=== PATIENT | male | born 1965 | race African-American/Black ===

== ENCOUNTER 2018-11-03 13:26 | Inpatient (IN) | payer OTHER ==
[2018-11-03 16:06] VITALS: BMI 25.9
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
[2018-11-03] MEDS ORDERED: P-EPHED 60MG/TRIPROLIDI 2.5MG TABLET PO PRN (16:47)
[2018-11-03] MEDS ORDERED: ACETAMINOPHEN 325 MG TABLET (FP) PO PRN (16:47)
[2018-11-03] MEDS ORDERED: guaiFENesin/D-METHORPHAN HB 10 ML UNIT-DOSE CUPS PO PRN (16:47)
[2018-11-03] MEDS ORDERED: MENTHOL/PHENOL 1 EACH UD MM PRN (16:47)
[2018-11-03] MEDS ORDERED: IBUPROFEN 400 MG TABLET (FP) PO PRN (16:47)
[2018-11-03] MEDS ORDERED: MAGNESIUM CITRATE 300 ML BOTTLE PO PRN (16:47)
[2018-11-03] MEDS ORDERED: MAGNESIUM HYDROX 2400MG/30ML ORAL SUSPENSION 30 ML CUP PO PRN (16:47)
[2018-11-03] MEDS ORDERED: MAG HYDROX/AL HYDROX/SIMETH 30 ML UNIT-DOSE CUP PO PRN (16:47)
[2018-11-03] MEDS ORDERED: NICOTINE POLACRILEX 2 MG GUM BC PRN (16:47)
[2018-11-03] MEDS ORDERED: METHADONE HCL 10 MG TABLET (FOR DETOX USE ONLY) PO ONE ×2 (17:45→23:00)
[2018-11-03] MEDS: THIAMINE HCL 100 MG TABLET (FP) PO SCH (22:06)
[2018-11-04] MEDS ORDERED: METHADONE HCL 5 MG TABLET PO ONE (10:00)
[2018-11-04] MEDS: PRENATAL VITAMINS W/ FOLIC ACID TABLET (FP) PO SCH (10:41)
[2018-11-04 10:57] LABS: HEMATOCRIT 39.9 % (35.4-49); HEMOGLOBIN 12.2 GM/dL (11.7-16.9); MCH 22.5 pg (25.7-33.7); MCHC 30.6 g/dl (32.0-35.9); MEAN CELL VOLUME 73.7 fl (80-96); MEAN PLT VOLUME 8.6 fl (7.5-11.1); PLATELET COUNT 220 K/MM3 (134-434); RBC 5.41 M/mm3 (4.00-5.60); RDW 15.5 % (11.9-15.9); WHITE BLOOD COUNT 4.8 K/mm3 (4.0-10.0)
--- NOTE | 2018-11-04 11:20 | PN ---
[facility] COWS - Scale Resting Pulse: 0= [place] 80 or Below Sweatin= Chills/Flushing Restless Observation: 3= Extraneous Movement Pupil Size: 0= Normal to Room Light Bone or Joint Aches: 4=Acute Joint/Muscle Pain Runny Nose/ Eye Tearin= None GI Upset > 30mins: 0= None Tremor Observation of Outstretched Hands: 1= Tremor [place], Not Seen Yawning Observation: 1= 1-2x During Session Anxiety or Irritability: 2=Irritable/Anxious Goose Flesh Skin: 0=Smooth Skin COWS Score: 12 S Progress Note (SOAP) Subjective: ANXIETY, IRRITABILITY, BODY ACHES, INTERMITTENT SLEEP. Objective: 11/04/18 11:53 Vital Signs 11/04/18 06:16 Temperature 97.5 F L Pulse Rate 67 Respiratory 18 Rate Blood Pressure 144/92 Laboratory Tests 11/04/18 07:50 WBC 4.8 RBC 5.41 Hgb 12.2 Hct 39.9 MCV 73.7 L MCH 22.5 L MCHC 30.6 L RDW 15.5 Plt Count 220 MPV 8.6 OTHER LABS PENDING Assessment: 11/04/18 11:54 WITHDRAWAL SX Plan: CONTINUE DETOX INCREASE PO FLUIDS
[2018-11-04] MEDS ORDERED: METHADONE HCL 5 MG TABLET (FOR DETOX USE ONLY) PO ONE (11:30)
[2018-11-04 12:18] LABS: ALK PHOS 51 U/L (45-117); ANION GAP 8 MMOL/L (8-16); BILIRUBIN,TOTAL 0.5 mg/dL (0.2-1); BLOOD UREA NITROGEN 14 mg/dL (7-18); CALCIUM 8.2 mg/dL (8.5-10.1); CHLORIDE 107 mmol/L (98-107); CO2 28 mmol/L (21-32); GLUCOSE,RANDOM 53 mg/dL (74-106); POTASSIUM 4.1 mmol/L (3.5-5.1); SGOT/AST 15 U/L (15-37); SGPT/ALT 21 U/L (13-61); SODIUM 142 mmol/L (136-145); TOT PROT 5.7 g/dl (6.4-8.2)
[2018-11-04] MEDS: THIAMINE HCL 100 MG TABLET (FP) PO SCH (22:30)
[2018-11-04] MEDS: MELATONIN 5 MG TABLETS PO PRN (23:56)
[2018-11-04] MEDS: METHOCARBAMOL 500 MG TABLET PO PRN (23:56)
[2018-11-05] MEDS ORDERED: TRIMETHOBENZAMIDE HCL 200MG/2ML INJ IM ONE (06:31)
--- NOTE | 2018-11-05 06:33 | PN ---
Maude Progress Note Note: Patient complained of nausea. Vomited x 1 Vital Signs Temperature 98.1 F 11/04/18 21:02 Pulse Rate 59 L 11/04/18 21:02 Respiratory Rate 18 11/05/18 00:30 Blood Pressure 131/78 11/04/18 21:02 O2 Sat by Pulse Oximetry (%) Action: Tigan 200mg IM ordered
[2018-11-05] MEDS ORDERED: METHADONE HCL 5 MG TABLET (FOR DETOX USE ONLY) PO ONE ×2 (10:00→12:00)
[2018-11-05] MEDS: PRENATAL VITAMINS W/ FOLIC ACID TABLET (FP) PO SCH (10:13)
[2018-11-05] MEDS ORDERED: cloNIDine HCL 0.1 MG TABLET PO PRN (11:56)
[2018-11-05] MEDS ORDERED: hydrOXYzine PAMOATE 50 MG CAPSULE (FP) PO PRN (11:58)
[2018-11-05] MEDS ORDERED: ONDANSETRON *ODT* 4 MG TABLET SL PRN (11:59)
[2018-11-05] MEDS ORDERED: TRIMETHOBENZAMIDE HCL 200MG/2ML INJ IM PRN (12:00)
--- NOTE | 2018-11-05 15:15 | PN ---
[facility] COWS - Scale Resting Pulse: 0= [place] 80 or Below Sweatin=Flushed/Facial Moisture Restless Observation: 3= Extraneous Movement Pupil Size: 1= Pupils >than Normal Bone or Joint Aches: 2= Severe Diffuse Aches Runny Nose/ Eye Tearin= Runny Nose/Eyes GI Upset > 30mins: 3= Vomiting/Diarrhea Tremor Observation of Outstretched Hands: 2= Slight Tremor Visible Yawning Observation: 1= 1-2x During Session Anxiety or Irritability: 2=Irritable/Anxious Goose Flesh Skin: 0=Smooth Skin COWS Score: 18 [facility] Progress Note (SOAP) Subjective: N/V/D, body aches, backache, tremor, chills, sweating, interrupted sleep. Patient stated he feels miserable due to withdrawal symptoms and that he only received methadone 10mg which is not effective. Patient looks very uncomfortable due to withdrawal symptoms. Objective: 11/05/18 15:08 Last Vital Signs Temp Pulse Resp BP Pulse Ox 98.8 F 56 L 20 127/79 11/05/18 14:36 11/05/18 14:36 11/05/18 14:36 11/05/18 14:36 Laboratory Tests 11/04/18 11/04/18 11/04/18 07:50 07:50 07:50 WBC 4.8 RBC 5.41 Hgb 12.2 Hct 39.9 MCV 73.7 L MCH 22.5 L MCHC 30.6 L RDW 15.5 Plt Count 220 MPV 8.6 Sodium 142 Potassium 4.1 Chloride 107 Carbon Dioxide 28 Anion Gap 8 BUN 14 Creatinine 1.0 Creat Clearance w eGFR > 60 Random Glucose 53 L Calcium 8.2 L Total Bilirubin 0.5 AST 15 ALT 21 Alkaline Phosphatase 51 Total Protein 5.7 L Albumin 3.0 L RPR Titer Nonreactive Labs reviewed: glucose 53 noted (most likely due to starvation as patient denied any h/o DM) Assessment: 11/05/18 15:10 Withdrawal symptoms Noted with hypoglycemia Plan: Continue detox Methadone 5mg PO x 1 dose (total of 15mg dose today), methadone 10mg PO in AM and 5mg PO once on Tuesday; add clonidine 0.1mg PO q8hr prn and flexeril 10mg PO q8hr prn; zofran SL prn and tigan 200mg IM prn for n/v. Encouraged PO water intake, continue to monitor Hypoglycemia: most likely due to vomiting, repeat BMP in AM
[2018-11-05] MEDS: THIAMINE HCL 100 MG TABLET (FP) PO SCH (22:18)
[2018-11-05] MEDS: MELATONIN 5 MG TABLETS PO PRN (22:19)
[2018-11-05] MEDS: METHOCARBAMOL 500 MG TABLET PO PRN (22:19)
[2018-11-06] MEDS ORDERED: METHADONE HCL 5 MG TABLET (FOR DETOX USE ONLY) PO ONE (06:00)
[2018-11-06 09:23] VITALS: BP 149/90; PULSE 60; TEMP 98.4
[2018-11-06] MEDS ORDERED: METHADONE HCL 10 MG TABLET (FOR DETOX USE ONLY) PO ONE (10:00)
[2018-11-06 10:26] LABS: ANION GAP 7 MMOL/L (8-16); BLOOD UREA NITROGEN 9 mg/dL (7-18); CALCIUM 8.7 mg/dL (8.5-10.1); CHLORIDE 99 mmol/L (98-107); CO2 31 mmol/L (21-32); CREATININE 1.1 mg/dL (0.55-1.3); GLUCOSE,RANDOM 97 mg/dL (74-106); POTASSIUM 4.7 mmol/L (3.5-5.1); SODIUM 137 mmol/L (136-145)
[2018-11-06] MEDS: PRENATAL VITAMINS W/ FOLIC ACID TABLET (FP) PO SCH (10:32)
--- NOTE | 2018-11-06 14:26 | DS ---
[facility] Detox Discharge Summary Admission Date: 11/03/18 Discharge Date: 11/06/18 - History Present History: Opioid Dependence Additional Comments: 53 years old male admitted on 11/03/18 for opiate withdrawal stabilization patient is doing well throughout the period of hospitalization insists to leave the detox unit that he wants to collect his belonging stored in the senior care patient is alert no acute distress denies suicidal denies homocidal no self destructive behavior - Physical Exam Results Vital Signs: Vital Signs Temperature 98.4 F 11/06/18 09:22 Pulse Rate 60 11/06/18 09:22 Respiratory Rate 18 11/06/18 09:22 Blood Pressure 149/90 11/06/18 09:22 O2 Sat by Pulse Oximetry (%) Pertinent Admission Physical Exam Findings: opiate withdrawal sx Vital Signs Temperature 98.4 F 11/06/18 09:22 Pulse Rate 60 11/06/18 09:22 Respiratory Rate 18 11/06/18 09:22 Blood Pressure 149/90 11/06/18 09:22 O2 Sat by Pulse Oximetry (%) Laboratory Last Values WBC 4.8 K/mm3 (4.0-10.0) 11/04/18 07:50 RBC 5.41 M/mm3 (4.00-5.60) 11/04/18 07:50 Hgb 12.2 GM/dL (11.7-16.9) 11/04/18 07:50 Hct 39.9 % (35.4-49) 11/04/18 07:50 MCV 73.7 fl (80-96) L 11/04/18 07:50 MCH 22.5 pg (25.7-33.7) L 11/04/18 07:50 MCHC 30.6 g/dl (32.0-35.9) L 11/04/18 07:50 RDW 15.5 % (11.9-15.9) 11/04/18 07:50 Plt Count 220 K/MM3 (134-434) 11/04/18 07:50 MPV 8.6 fl (7.5-11.1) 11/04/18 07:50 Sodium 137 mmol/L (136-145) 11/06/18 07:00 Potassium 4.7 mmol/L (3.5-5.1) 11/06/18 07:00 Chloride 99 mmol/L (98-107) 11/06/18 07:00 Carbon Dioxide 31 mmol/L (21-32) 11/06/18 07:00 Anion Gap 7 MMOL/L (8-16) L 11/06/18 07:00 BUN 9 mg/dL (7-18) 11/06/18 07:00 Creatinine 1.1 mg/dL (0.55-1.3) 11/06/18 07:00 Creat Clearance w eGFR > 60 (>60) 11/06/18 07:00 Random Glucose 97 mg/dL (74-106) 11/06/18 07:00 Calcium 8.7 mg/dL (8.5-10.1) 11/06/18 07:00 Total Bilirubin 0.5 mg/dL (0.2-1) 11/04/18 07:50 AST 15 U/L (15-37) 11/04/18 07:50 ALT 21 U/L (13-61) 11/04/18 07:50 Alkaline Phosphatase 51 U/L (45-117) 11/04/18 07:50 Total Protein 5.7 g/dl (6.4-8.2) L 11/04/18 07:50 Albumin 3.0 g/dl (3.4-5.0) L 11/04/18 07:50 RPR Titer Nonreactive (NONREACTIVE) 11/04/18 07:50 lab noted - Treatment Hospital Course: Detox Protocol Followed, Responded well Patient has Accepted a Rehab Referral to: [facility] - Medication Discharge Medications: Ambulatory Orders NK [No Known Home Medication] 11/03/18 - Diagnosis (1) Opioid dependence with withdrawal Status: Acute (2) Nicotine dependence Status: Acute Qualifiers: Nicotine product type: cigarettes Substance use status: in withdrawal Qualified Code(s): F17.213 - Nicotine dependence, cigarettes, with withdrawal - AMA Did Patient Leave Against Medical Advice: Yes
[2018-11-07] MEDS ORDERED: METHADONE HCL 10 MG TABLET (FOR DETOX USE ONLY) PO ONE (06:00)
== END 2018-11-06 12:04 | disposition left against medical advice (07) | DRG 770 ==
LOC: YASAS 13:26 → Y3N 17:14
PROC: HZ2ZZZZ Detoxification Services for Substance Abuse Treatment (ICD-10-PCS; principal; 2018-11-03)
DX: F11.23 Opioid dependence with withdrawal (principal); F14.20 Cocaine dependence, uncomplicated; F12.20 Cannabis dependence, uncomplicated; F17.213 Nicotine dependence, cigarettes, with withdrawal; E16.2 Hypoglycemia, unspecified; Z59.0 Homelessness
CPT/HCPCS: 36415; 80048; 80053; 85027; 86593